=== PATIENT | female | born 1935 | race Caucasian/White ===

== ENCOUNTER 2016-10-10 08:49 | Day surgery (SDC) | payer OTHER ==
[2016-10-10] MEDS ORDERED: TETRACAINE 0.5% OPHTH 1 DOSE AFFEYE ONE ×4 (09:00→13:48)
[2016-10-10] MEDS ORDERED: VIGAMOX 0.5% OPHTH 1 DOSE AFFEYE ONE ×6 (09:01→14:04)
[2016-10-10] MEDS ORDERED: NS 500 ML IV 500 ML IV ONE (09:06)
[2016-10-10] MEDS ORDERED: PROLENSA OPHTH 1 DOSE AFFEYE ONE (09:17)
[2016-10-10] MEDS ORDERED: ALPHAGAN-P OPHTH 1 DOSE AFFEYE ONE (09:18)
[2016-10-10] MEDS ORDERED: CYCLOGYL 1% OPHTH 1 DOSE OP ONE ×4 (09:19→09:22)
[2016-10-10] MEDS ORDERED: AK-DILATE 2.5% OPHTH 1 DOSE OP ONE ×4 (09:19→09:22)
[2016-10-10] MEDS ORDERED: MYDRIACIL OPHTH 1 DOSE AFFEYE ONE ×4 (09:19→09:22)
[2016-10-10] MEDS ORDERED: BETADINE OPHTH SOLN 5% EACHEYE ONE (13:40)
[2016-10-10] MEDS ORDERED: DUOVISC IO ONE ×2 (13:46→13:48)
[2016-10-10] MEDS ORDERED: ADRENALINE CHL INJ IJ ONE ×2 (13:46→13:48)
[2016-10-10] MEDS ORDERED: XYLOCAINE-MPF 1% IJ ONE ×2 (13:46→13:48)
[2016-10-10] MEDS ORDERED: BSS OPHTH (PLAIN) 500 ML with VANCOMYCIN HCL 500 MG VIAL 25 MG, ADRENALINE CHL INJ 1 MG IR ONE ×6 (13:47)
[2016-10-10 17:04] VITALS: BP 171/72
== END 2016-10-10 15:30 | disposition home or self-care (01) ==
LOC: SURG1 08:49
PROVIDERS: ATTEND Ophthalmology
PROC: 08DJ3ZZ Extraction of Right Lens, Percutaneous Approach (ICD-10-PCS; principal; 2016-10-10 16:15)
PROC: 08RJ3JZ Replacement of Right Lens with Synthetic Substitute, Percutaneous Approach (ICD-10-PCS; principal; 2016-10-10 16:15)
DX: H25.11 Age-related nuclear cataract, right eye (principal); H25.011 Cortical age-related cataract, right eye; H25.041 Posterior subcapsular polar age-related cataract, right eye; H52.221 Regular astigmatism, right eye
CPT/HCPCS: 99100; A4217; J0170; J3370

== ENCOUNTER 2016-10-24 08:56 | Day surgery (SDC) | payer OTHER ==
[2016-10-24] MEDS: TETRACAINE 0.5% OPHTH 1 DOSE AFFEYE ONE ×2 (09:18→13:05)
[2016-10-24] MEDS: VIGAMOX 0.5% OPHTH 1 DOSE AFFEYE ONE ×3 (09:20→09:30)
[2016-10-24] MEDS: PROLENSA OPHTH 1 DOSE AFFEYE ONE (09:32)
[2016-10-24] MEDS: ALPHAGAN-P OPHTH 1 DOSE AFFEYE ONE (09:33)
[2016-10-24] MEDS: AK-DILATE 2.5% OPHTH 1 DOSE OP ONE ×3 (09:35→09:40)
[2016-10-24] MEDS: CYCLOGYL 1% OPHTH 1 DOSE OP ONE ×3 (09:35→09:40)
[2016-10-24] MEDS: NS 500 ML IV 500 ML IV ONE (09:35)
[2016-10-24] MEDS: MYDRIACIL OPHTH 1 DOSE AFFEYE ONE ×3 (09:37→11:03)
[2016-10-24] MEDS ORDERED: DIPRIVAN VIAL ONE (10:04)
[2016-10-24] MEDS: AK-DILATE 10% OPHTH 1 DOSE AFFEYE ONE (10:57)
[2016-10-24] MEDS: CYCLOGYL 1% OPHTH 1 DOSE AFFEYE ONE (11:03)
[2016-10-24] MEDS: AK-DILATE 2.5% OPHTH 1 DOSE AFFEYE ONE (11:03)
[2016-10-24] MEDS: BETADINE OPHTH SOLN 5% EACHEYE ONE (13:05)
[2016-10-24 16:06] VITALS: BP 187/68
== END 2016-10-24 13:55 | disposition home or self-care (01) ==
LOC: SURG1 08:56
PROVIDERS: ATTEND Ophthalmology
PROC: 08RJ3JZ Replacement of Right Lens with Synthetic Substitute, Percutaneous Approach (ICD-10-PCS; principal; 2016-10-24 18:30)
PROC: 08DJ3ZZ Extraction of Right Lens, Percutaneous Approach (ICD-10-PCS; principal; 2016-10-24 18:30)
DX: H25.11 Age-related nuclear cataract, right eye (principal); H25.011 Cortical age-related cataract, right eye; H52.221 Regular astigmatism, right eye
CPT/HCPCS: 99100; A4217; J3490

== ENCOUNTER 2016-12-12 08:32 | Day surgery (SDC) | payer OTHER ==
[2016-12-12] MEDS ORDERED: NS 500 ML IV 500 ML IV ONE (09:08)
[2016-12-12] MEDS ORDERED: TETRACAINE 0.5% OPHTH 1 DOSE AFFEYE ONE ×2 (09:23→11:12)
[2016-12-12] MEDS ORDERED: VIGAMOX 0.5% OPHTH 1 DOSE AFFEYE ONE ×4 (09:24→11:26)
[2016-12-12] MEDS ORDERED: PROLENSA OPHTH 1 DOSE AFFEYE ONE (09:35)
[2016-12-12] MEDS ORDERED: ALPHAGAN-P OPHTH 1 DOSE AFFEYE ONE (09:36)
[2016-12-12] MEDS ORDERED: CYCLOGYL 1% OPHTH 1 DOSE OP ONE ×5 (09:37→09:41)
[2016-12-12] MEDS ORDERED: AK-DILATE 2.5% OPHTH 1 DOSE OP ONE ×5 (09:37→09:41)
[2016-12-12] MEDS ORDERED: MYDRIACIL OPHTH 1 DOSE AFFEYE ONE ×5 (09:37→09:41)
[2016-12-12] MEDS ORDERED: BETADINE OPHTH SOLN 5% EACHEYE ONE (11:12)
[2016-12-12] MEDS ORDERED: DUOVISC IO ONE (11:22)
[2016-12-12] MEDS ORDERED: ADRENALINE CHL INJ IJ ONE (11:22)
[2016-12-12] MEDS ORDERED: BSS OPHTH (PLAIN) 500 ML with VANCOMYCIN HCL 500 MG VIAL 25 MG, ADRENALINE CHL INJ 1 MG IR ONE ×3 (11:22)
[2016-12-12] MEDS ORDERED: XYLOCAINE-MPF 1% IJ ONE (11:22)
[2016-12-12] MEDS ORDERED: VISCOAT 0.5 ML IO ONE (11:30)
[2016-12-12] MEDS ORDERED: TobraDEX OPHTH SUSP 1 DOSE AFFEYE ONE ×2 (11:30→11:38)
[2016-12-12 13:11] VITALS: BP 172/75
[2016-12-12] MEDS ORDERED: DIPRIVAN VIAL ONE (15:37)
[2016-12-12] MEDS ORDERED: VERSED ONE (15:37)
== END 2016-12-12 12:05 | disposition home or self-care (01) ==
LOC: SURG1 08:32
PROVIDERS: ATTEND Ophthalmology
PROC: 08DK3ZZ Extraction of Left Lens, Percutaneous Approach (ICD-10-PCS; principal; 2016-12-12 14:45)
PROC: 08RK3JZ Replacement of Left Lens with Synthetic Substitute, Percutaneous Approach (ICD-10-PCS; principal; 2016-12-12 14:45)
DX: H25.12 Age-related nuclear cataract, left eye (principal); H25.012 Cortical age-related cataract, left eye; H52.222 Regular astigmatism, left eye
CPT/HCPCS: 99100; A4217; J0170; J2250; J3370; J3490